=== PATIENT | female | born 1970 | race Caucasian/White ===

== ENCOUNTER → 2024-03-18 11:51 | Outpatient (REF) | payer BC, SELFPAY | LOC: RAD 11:51 | PROVIDERS: ATTENDING PHYSICIAN Physician Assistant Medical; FAMILY PHYSICIAN Family Medicine | DX: M54.50 Low back pain, unspecified (principal) | CPT/HCPCS: 72110 ==

== ENCOUNTER → 2024-05-02 09:45 | Outpatient (REF) | payer BC, SELFPAY | LOC: DHSLP 09:45 | PROVIDERS: ATTENDING PHYSICIAN Internal Medicine Critical Care Medicine; FAMILY PHYSICIAN Family Medicine | DX: G47.00 Insomnia, unspecified (principal); G47.61 Periodic limb movement disorder | CPT/HCPCS: 95810 ==

== ENCOUNTER → 2024-08-23 11:59 | Outpatient (REF) | payer BC, SELFPAY | LOC: WDC 11:59 | PROVIDERS: ATTENDING PHYSICIAN Obstetrics & Gynecology; FAMILY PHYSICIAN Family Medicine | DX: Z12.31 Encounter for screening mammogram for malignant neoplasm of breast (principal) | CPT/HCPCS: 77063; 77067 ==

== ENCOUNTER → 2024-10-23 09:18 | Outpatient (REF) | payer OTHER, SELFPAY | LOC: RCS 09:18 | PROVIDERS: ATTENDING PHYSICIAN Family Medicine | DX: R00.2 Palpitations (principal) | CPT/HCPCS: 93225; 93226 ==

== ENCOUNTER → 2025-08-25 14:43 | Outpatient (REF) | payer OTHER, SELFPAY | LOC: WDC 14:43 | PROVIDERS: ATTENDING PHYSICIAN Family Medicine | DX: Z12.31 Encounter for screening mammogram for malignant neoplasm of breast (principal) | CPT/HCPCS: 77063; 77067 ==